=== PATIENT | male | born 1980 ===

== ENCOUNTER → 2021-04-04 | Outpatient (CLI) | payer OTHER ==
[~2021-04-04] MED LIST: LOSA-73 PO
--- NOTE | 2021-04-04 08:37 | PDOC1 ---
INITIAL PAIN CONSULT DATE OF SERVICE: DOS: DATE: 04/04/21 TIME: 08:30 CHIEF COMPLAINT: Chief Complaint: Low back pain and left lower extremity pain HISTORY OF PRESENT ILLNESS: 40-year-old male presents with history of pain for about 4 years after a weightlifting incident in duty for many years approximately 23, with pain in the low back itself radiating bilaterally into the low back and occasionally with some pain in the left leg but only infrequently. Patient reports has been getting worse over the past year or so he was formally stationed in [facility] and had radiofrequency ablation several times every 6 months for total of approximately 4 times with very good results with pain returning after about a 6-month time. Patient reports now the pain is significant in the low back throbbing with pain is intermittent in intensity worse with walking standing changing positions as well as standing for more than 10 to 15 minutes or sitting for more than 20 minutes patient reports has had physical therapy of this was in [place] as well over a year ago which did help but only temporarily patient also is taking [id number] and analgesics and anti-inflammatories which were helpful as well. Patient has not had any physical therapy recently has not had any medication other than [id number] recently as well. Patient reports is disability rating 0-10 10 being worst is a 6 with family home responsibilities 7 with recreation and occupation 5 with social activity 3 with section behavior 7 with self-care and 3 with life support activities specially sleeping reports it wakes him release once a night from sleep patient reports does not affect his bowel bladder control or significantly his ability to walk although it is painful to do so. PAST MEDICAL HISTORY: PMH: Hypertension, hearing loss PREVIOUS SURGERIES: Past Surgical Hx: Lymphadenectomy, appendectomy CURRENT MEDICATIONS: Current Meds: Active Scripts Medications Dose Route/Sig Max Daily Dose Days Date Category Losartan Potassium 50 Mg Tablet 50 Mg PO DAILY 04/04/21 Reported ALLERGIES; Allergies: Coded Allergies: tramadol (Verified Allergy, Severe, 04/04/21) heart palpatations FAMILY HISTORY: Family Hx: No major medical problems or conditions that he is aware of. SOCIAL HISTORY: Social Hx: Patient is under alcohol does not smoke or use any illegal illicit recreational drugs is and is currently in active duty in custody [facility] REVIEW OF SYSTEMS: ROS: Positive for those items mentioned in history of present illness, all systems are reviewed, otherwise negative ,and are complete full and well-documented on patient's chart. PHYSICAL EXAM: VS: Blood pressure is 118/78 pulse 68 respirations 18 temperature 90.4 F height is 5 feet 11 inches weight is 184 pounds PE: PHYSICAL EXAMINATION: GENERAL: The patient is awake, alert, oriented, appropriate, very pleasant in demeanor, patient in custody. HEENT: Shows normocephalic, atraumatic. Extraocular movements are intact and symmetrical. Oral cavity: Mucous membranes moist and pink. Dentition is intact. NECK: Shows anterior throat supple without palpable lymphadenopathy noted. Swallow reflex symmetrical. CHEST: Shows normal on inspection. Breath sounds are clear bilaterally, no rales rhonchi or wheezes auscultated. HEART: Shows S1, S2 clear. No murmurs auscultated. ABDOMEN: Soft, nontender, nondistended, flat. No palpable organomegaly is noted. No rebound or guarding demonstrated. BACK: Shows spine grossly in the midline. Normal-appearing cervical lordotic curvature. There is slightly increased thoracic kyphosis, some minor flattening of the lumbar lordotic curvature. Lumbar paraspinous muscles show symmetrical on inspection, on palpation shows some moderate tenderness diffusely throughout the upper, middle and lower distribution of the paraspinous muscles bilaterally and also into the lower thoracic paraspinous musculature, firm and tender, but without specific trigger points. The patient has good rotational motion of the lumbar spine, both laterally as well as extension and flexion with moderate pain with right and left lateral rotation and significant pain with extension lumbar spine and axial loading better with forward flexion at 45 degrees which is performed without difficulty. No tenderness over the spinous processes, sacrum or sacroiliac regions. EXTREMITIES: Lower extremities show deep tendon reflexes 2+ in the patellar and tendo calcaneus tendons. Motor exam is 5 on a scale of 5 with right dorsiflexion, extension, quadriceps and hamstring flexion and 5/5 on the left. Peripheral pulses are 1 posterior tibial. No peripheral edema is noted bilaterally. Lower extremities are warm and dry to touch, equal in color and appearance. Straight leg raise noted to be negative bilaterally. Gaenslen's and George's maneuvers are negative bilateral as well. The patient is able to stand, stand on his toes without significant difficulty or loss of balance. SKIN: Shows warm and dry, good turgor. No edema. No sores, rashes or bruising throughout. IMPRESSION: Impression: 40-year-old male with long history low back pain and some left lower extremity pain intermittently. Radiofrequency ablation treatment x4 every 6 months at outside facility with good results. Hypertension Hearing loss Plan: Options were discussed with patient including conservative medical management physical therapy as well as continued interventional techniques. Patient is had very good luck with interventional techniques i.e. radiofrequency ablation of the lumbar L4-5 and L5-S1 medial branches. We will preauthorize patient for repeat radiofrequency ablation and or diagnostic facet blocks if required by patient's insurance provider. In the meantime, patient will continue with stretching strength exercises on his own. Also will prescribe Valium 10 mg prior to procedure patient was given instructions well side effects beware with the medication. EWELINA CARRILLO MD Apr 04, 2021 08:37
== END | disposition home or self-care (01) ==
LOC: PNCL 07:36
PROVIDERS: ATTEND Anesthesiology
DX: M54.5 Low back pain (principal); M79.605 Pain in left leg; I10 Essential (primary) hypertension; Z79.899 Other long term (current) drug therapy; Z98.890 Other specified postprocedural states; Z88.8 Allergy status to other drugs, medicaments and biological substances
CPT/HCPCS: 99205; G0463